=== PATIENT | female | born 1960 | race Caucasian/White ===

== ENCOUNTER 2023-02-04 17:19 | Inpatient (IN) | payer OTHER ==
[~2023-02-04] VITALS: Ht 170.2 cm; Wt 62.4 kg
[2023-02-04] MEDS ORDERED: iohexol 350MG/ML 100ml bottle IV ONE (17:43)
[2023-02-04] MEDS ORDERED: iohexol 350 MG/ML 50ML vial IV ONE (17:49)
--- NOTE | 2023-02-04 18:00 | NUR ---
Patient just got back to her room from CT scan dept
[2023-02-04 18:01] LABS: BASOPHILS # (AUTO) 0.1 X10'3 (0-0.2); BASOPHILS % (AUTO) 1.1 % (0-1); EOSINOPHILS # (AUTO) 0.1 X10'3 (0-0.9); EOSINOPHILS % (AUTO) 1.1 % (0-6); HEMATOCRIT 32.5 % (35.0-45.0); LYMPHOCYTES # (AUTO) 2.6 X10'3 (1.1-4.8); LYMPHOCYTES % (AUTO) 24.6 % (21-51); MEAN CORPUSCULAR HEMOGLOBIN 32.4 PG (27.0-31.0); MEAN CORPUSCULAR VOLUME 95.3 FL (78-98); MEAN PLATELET VOLUME 7.6 FL (7.4-10.4); MONOCYTES # (AUTO) 0.9 X10'3 (0-0.9); MONOCYTES % (AUTO) 8.2 % (2-12); PLATELET COUNT 277 X10'3 (140-440); RED BLOOD COUNT 3.41 X10'6 (4.20-5.60); RED CELL DISTRIBUTION WIDTH 12.8 % (11.5-14.5); WHITE BLOOD COUNT 10.7 X10'3 (4.5-11.0)
--- NOTE | 2023-02-04 18:14 | NUR ---
Teleneuro consult ongoing. Stroke nurse at bedside. Patient's daughter at bedside.
[2023-02-04 18:22] LABS: ALANINE AMINOTRANSFERASE 20 U/L (12-78); ALBUMIN 3.6 G/DL (3.4-5.0); ALBUMIN/GLOBULIN RATIO 1.1 (1.1-1.5); ALKALINE PHOSPHATASE 115 IU/L (46-116); ANION GAP 8 (8-16); ASPARTATE AMINO TRANSFERASE 15 U/L (10-37); BLOOD UREA NITROGEN 17 MG/DL (7-18); BUN/CREATININE RATIO 17.9 (10.0-20.0); CALCIUM 8.5 MG/DL (8.5-10.1); CHLORIDE 103 MMOL/L (99-107); CREATININE 0.95 MG/DL (0.40-0.90); GLUCOSE 102 MG/DL (70-104); SODIUM 139 MMOL/L (135-145); TOTAL CARBON DIOXIDE 27.7 MMOL/L (24-32); TOTAL PROTEIN 6.8 G/DL (6.4-8.2); eGFR 60 ML/MIN
[2023-02-04 18:24] LABS: BILIRUBIN,TOTAL 0.1 MG/DL (0.1-1.0)
--- NOTE | 2023-02-04 18:46 | NUR ---
pt provided bedside commode and hat to provide urine sample, but was unable to produce.
[2023-02-04 19:03] LABS: APTT 26 SECONDS (22-32)
[2023-02-04 20:11] LABS: CLARITY,URINE CLEAR (Clear); COLOR,URINE YELLOW (Yellow); GLUCOSE, URINE NEGATIVE (Neg); KETONES,URINE NEGATIVE (Neg); LEUKOCYTE ESTERASE ,URINE NEGATIVE (Neg); NITRITES, URINE NEGATIVE (Neg); OCCULT BLOOD,URINE TRACE-INTACT (Neg); PH,URINE 7.5 (4.8-8.0); PROTEIN,URINE NEGATIVE (Neg); UROBILINOGEN,URINE 0.2 E.U/dL (0.2-1.0)
[2023-02-04 20:13] LABS: UA COLLECTION TYPE CLN CATCH MIDSTREAM
[2023-02-04 20:20] LABS: BACTERIA,URINE NONE SEEN /HPF (Neg); MUCUS STRANDS NONE SEEN /LPF (Neg); RBC,URINE 0-2 /HPF (0-2); SQUAMOUS EPITHELIAL CELL,UR FEW /LPF (FEW); WBC,URINE 0-4 /HPF (0-4)
[2023-02-04 21:30] VITALS: BP 101/66
[2023-02-05] MEDS ORDERED: dextrose 5%-1/2 normal saline 1,000 ML IV SCH (01:15)
[2023-02-05] MEDS ORDERED: morphine 2 MG/ML inj. syringe IV PRN (01:15)
[2023-02-05] MEDS ORDERED: racepinephrine 11.25mg/0.5ml nebule NEB PRN (01:15)
[2023-02-05] MEDS ORDERED: HYDROcodone/acetaminophen 5mg/325mg tablet PO PRN (01:15)
[2023-02-05] MEDS ORDERED: diphenhydrAMINE 25mg capsule PO PRN (01:15)
[2023-02-05] MEDS ORDERED: magnesium hydroxide 30ml (MOM) UD suspension PO PRN (01:15)
[2023-02-05] MEDS ORDERED: ondansetron 4mg rapidly disintigrating tab PO PRN (01:15)
[2023-02-05] MEDS ORDERED: ondansetron/PF 4mg/2ml inj IV PRN (01:15)
[2023-02-05] MEDS ORDERED: acetaminophen 325mg tablet PO PRN ×2 (01:15)
[2023-02-05] MEDS ORDERED: mag hydrox/Alum hydrox/simeth 30ml oral suspension PO PRN (01:15)
[2023-02-05] MEDS ORDERED: metoclopramide 5 mg/ml inj IV PRN (01:15)
[2023-02-05] MEDS ORDERED: bisacodyl 10mg suppository rectal RC PRN (01:15)
[2023-02-05] MEDS ORDERED: diphenhydrAMINE 50 mg/ml inj IV PRN (01:15)
[2023-02-05] MEDS ORDERED: azithromycin/NS 500mg/250ml 250 ML IV SCH (02:00)
[2023-02-05 02:19] LABS: HEMOGLOBIN A1C 5.5 % (4.5-6.2)
[2023-02-05] MEDS ORDERED: LORA-269 PO (02:21)
[2023-02-05] MEDS ORDERED: AMIT50TA15 PO (02:21)
[2023-02-05] MEDS ORDERED: BUPR300T7 PO (02:21)
[2023-02-05] MEDS ORDERED: TRAZ150T78 PO (02:21)
[2023-02-05] MEDS ORDERED: GABA800T11 PO (02:21)
[2023-02-05 02:22] LABS: APTT 26 SECONDS (22-32)
[2023-02-05 02:26] LABS: D-DIMER < 0.19 MG/L FEU (0-0.50)
[2023-02-05] MEDS ORDERED: gabapentin 400mg capsule PO PRN (02:30)
[2023-02-05 02:32] LABS: CREATINE KINASE 66 U/L (26-192); ETHANOL < 0.010 GM/DL (0.0-0.010); LIPASE 90 U/L (73-393); MAGNESIUM 2.3 MG/DL (1.5-2.4); PHOSPHORUS 3.8 MG/DL (2.3-4.5)
[2023-02-05 02:40] LABS: ACETAMINOPHEN < 2.0 UG/ML (10-30)
[2023-02-05] MEDS ORDERED: CefTRIAXone/D5W-Rocephin 1gm 50 ML IV SCH (03:00)
--- NOTE | 2023-02-05 03:01 | NUR ---
Pt and family wished to leave AMA after being admitted. MD notified. Risks of leaving before being cleared by MD discussed including dizziness, ALOC, and SOB. Pt is staying in a nearby hotel with family for the night. Pt encouraged to return to the ER if condition worsens such as, symptoms listed previous or other concerns. Pt is Alert, oriented x 4, and walks with a steady gait independantly. Pt IV removed. Pt signed AMA form.
[2023-02-05 04:24] LABS: URINE AMPHETAMINE SCREEN NEGATIVE (Neg); URINE BARBITUATE SCREEN NEGATIVE (Neg); URINE BENZODIAZEPINES SCREEN NEGATIVE (Neg); URINE CANNABINOID SCREEN POSITIVE (Neg); URINE COCAINE SCREEN NEGATIVE (Neg); URINE METHADONE SCREEN NEGATIVE (Neg); URINE OPIATE SCREEN NEGATIVE (Neg); URINE PHENCYCLIDINE SCREEN NEGATIVE (Neg)
[2023-02-05] MEDS ORDERED: pantoprazole 40mg Tablet.DR PO SCH (07:30)
[2023-02-05] MEDS ORDERED: docusate sod 100mg capsule PO SCH (08:00)
[2023-02-05] MEDS ORDERED: buPROPion SR 150mg tablet PO SCH (08:00)
[2023-02-05] MEDS ORDERED: heparin, porcine 5000 units/ml vial SQ SCH (08:00)
[2023-02-05] MEDS ORDERED: amitriptyline 50mg tablet PO SCH (21:00)
[2023-02-05] MEDS ORDERED: temazepam 15mg capsule PO PRN (21:00)
--- NOTE | 2023-02-07 11:19 | NUR ---
Received order for consult. Patient was discharged. Inappropriate referral will not be calling patient.
== END 2023-02-05 06:00 | disposition left against medical advice (07) | DRG 682 ==
LOC: ER 17:21 → ED HOLD 02-05 01:20
PROVIDERS: ADMIT Family Medicine; ATTEND Family Medicine
PROC: B3251ZZ Computerized Tomography (CT Scan) of Bilateral Common Carotid Arteries using Low Osmolar Contrast (ICD-10-PCS; principal; 2023-02-04)
PROC: B32G1ZZ Computerized Tomography (CT Scan) of Bilateral Vertebral Arteries using Low Osmolar Contrast (ICD-10-PCS; 2023-02-04)
PROC: B32R1ZZ Computerized Tomography (CT Scan) of Intracranial Arteries using Low Osmolar Contrast (ICD-10-PCS; 2023-02-04)
PROC: B3281ZZ Computerized Tomography (CT Scan) of Bilateral Internal Carotid Arteries using Low Osmolar Contrast (ICD-10-PCS; 2023-02-04)
DX: N17.9 Acute kidney failure, unspecified (principal); J18.9 Pneumonia, unspecified organism; F19.10 Other psychoactive substance abuse, uncomplicated; F12.10 Cannabis abuse, uncomplicated; D64.9 Anemia, unspecified; Z53.29 Procedure and treatment not carried out because of patient's decision for other reasons; E86.1 Hypovolemia; I12.9 Hypertensive chronic kidney disease with stage 1 through stage 4 chronic kidney disease, or unspecified chronic kidney disease; N18.9 Chronic kidney disease, unspecified; F41.9 Anxiety disorder, unspecified; R26.9 Unspecified abnormalities of gait and mobility; R47.81 Slurred speech
CPT/HCPCS: 36415; 70450; 70496; 70498; 71045; 71250; 74176; 80053; 80305; 80320; 80329; 81001; 82140; 82550; 82948; 83036; 83605; 83690; 83735; 83880; 84100; 84145; 84443; 84484; 85025; 85379; 85610; 85730; 87040; 99285; G0378; J3490; Q9967